=== PATIENT | male | born 1995 | race Caucasian/White ===

== ENCOUNTER → 2020-04-21 | Outpatient (REF) | payer MEDICAID, OTHER, SELFPAY ==
[2020-04-27 14:08] LABS: HSV TYPE I IgG SPECIFIC <0.91 index (0.00-0.90); HSV TYPE I IgM AB <1:10 titer (<1:10); HSV TYPE II IgM ABY <1:10 titer (<1:10)
== END ==
LOC: M LAB REF 17:30
PROVIDERS: ATTEND Physician Assistant
DX: Z11.3 Encounter for screening for infections with a predominantly sexual mode of transmission (principal)

== ENCOUNTER 2020-06-21 14:41 | Inpatient (IN) | payer MEDICAID, OTHER ==
[2020-06-21 17:07] LABS: HEMATOCRIT 48.1 % (42.0-52.0); HEMOGLOBIN 16.1 g/dl (13.5-17.5); MEAN CORPUSCULAR HEMOGLOBIN 29.8 pg (27.0-33.0); MEAN CORPUSCULAR HGB CONC 33.5 g/dl (32.0-36.5); MEAN CORPUSCULAR VOLUME 89.1 fl (80.0-96.0); PLATELET COUNT, AUTOMATED 250 10^3/uL (150-450); WHITE BLOOD COUNT 6.8 10^3/uL (4.0-10.0)
[2020-06-21 18:05] LABS: ACETAMINOPHEN LEVEL < 2.0 UG/ML (10.0-30.0); ALBUMIN 4.2 GM/DL (3.2-5.2); ALT/SGPT 27 U/L (12-78); BILIRUBIN,DIRECT 0.2 MG/DL (0.0-0.2); BILIRUBIN,TOTAL 0.7 MG/DL (0.2-1.0); BLOOD UREA NITROGEN 14 MG/DL (7-18); CALCIUM LEVEL 9.2 MG/DL (8.5-10.1); CARBON DIOXIDE LEVEL 28 MEQ/L (21-32); CHLORIDE LEVEL 108 MEQ/L (98-107); CREATININE FOR GFR 0.91 MG/DL (0.70-1.30); ETHYL ALCOHOL (ETHANOL) 0.004 % (0.000-0.010); GLOMERULAR FILTRATION RATE > 60.0 (>60); GLUCOSE, FASTING 78 MG/DL (70-100); POTASSIUM SERUM 4.3 MEQ/L (3.5-5.1); SALICYLATE LEVEL < 1.7 MG/DL (5.0-30.0); SODIUM LEVEL 140 MEQ/L (136-145); TOTAL PROTEIN 7.2 GM/DL (6.4-8.2)
[2020-06-21 18:27] LABS: AMPHETAMINES LEVEL URINE NEGATIVE (NEGATIVE); BARBITURATES URINE NEGATIVE (NEGATIVE); BENZODIAZEPINES URINE NEGATIVE (NEGATIVE); CANNABINOIDS URINE NEGATIVE (NEGATIVE); COCAINE METABOLITE URINE NEGATIVE (NEGATIVE); METHADONE URINE NEGATIVE (NEGATIVE); OPIATES URINE NEGATIVE (NEGATIVE); PHENCYCLIDINE URINE NEGATIVE (NEGATIVE)
[2020-06-21] MEDS ORDERED: OLANZapine ORAL DISINTEGRATING TAB 5MG PO PRN (20:00)
[2020-06-21] MEDS ORDERED: ACETAMINOPHEN TAB 650MG DOSE (2X325MG) PO PRN (20:00)
[2020-06-21] MEDS ORDERED: MOM 30ML SUSPENSION UDC PO PRN (20:00)
[2020-06-21] MEDS ORDERED: traZODone 50 MG TAB PO PRN (20:00)
[2020-06-21] MEDS ORDERED: MAALOX 30 ML SUSP *UDC PO PRN (20:00)
[2020-06-21 22:02] VITALS: BP 101/61
[2020-06-21] MEDS: ALBUTEROL 90 MCG/ACT 8GM HFA INHALER INH PRN (23:26)
[2020-06-22 06:18] VITALS: BP 103/59
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
[2020-06-22 18:13] VITALS: BP 112/56
[2020-06-23 06:23] VITALS: BP 104/51
[2020-06-23] MEDS: ALBUTEROL 90 MCG/ACT 8GM HFA INHALER INH PRN (08:30)
--- NOTE | 2020-06-23 10:07 | MHIPNPDOC ---
[facility] Progress Note Progress Note DATE OF SERVICE: 06/23/20 HISTORY: . VITAL SIGNS: See below. NEW TEST RESULTS: . CURRENT MEDICATIONS: See below. MENTAL STATUS EXAMINATION: Patient is a -year old male, who is . Speech: Is . Language skills are . Thought processes including: . Thought content: . Abstract reasoning, and computation: . Description of associ ations: . Description of abnormal or psychotic thoughts: . Judgment: . Insight: [very limited, good, fair. poor]. Orientation: . Recent and remote memory: . Attention span and concentration: . Language: . Fund of knowledge: . Mood: . Affect: . DIAGNOSES: 1. . 2. . 3. . ASSESSMENT: MANAGEMENT PLAN: . TIME SPENT: minutes. Vital Signs Vital Signs Date Time Temp Pulse Resp B/P (MAP) Pulse Ox O2 Delivery O2 Flow Rate FiO2 06/23/20 06:23 97.4 52 12 104/51 (68) Room Air 06/22/20 06:18 99 Current Medications Current Medications Medications (Trade) Dose Ordered Sig/Ana Route PRN Reason Start Time Stop Time Status Last Admin Dose Admin Acetaminophen (Tylenol Tab) 650 mg Q6HP PRN PO HEADACHE or DISCOMFORT 06/21/20 20:00 Al Hydrox/Mg Hydrox/Simethicone (Mylanta) 30 ml Q4HP PRN PO HEARTBURN/INDIGESTION 06/21/20 20:00 Albuterol Sulfate (Proventil, Ventolin Hfa) 2 puff Q4HP PRN INH SHORTNESS OF BREATH 06/21/20 23:00 06/23/20 08:30 Home Med (Med Rec Complete!) ASDIRECTED XX 06/21/20 20:30 06/21/20 20:31 DC Magnesium Hydroxide (Milk Of Magnesia) 30 ml DAILYPRN PRN PO CONSTIPATION 06/21/20 20:00 Olanzapine (ZyPREXA ZYDIS) 10 mg Q4HP PRN PO AGITATION/ANXIETY 06/21/20 20:00 Trazodone HCl (Desyrel) 50 mg QHSP PRN PO INSOMNIA 06/21/20 20:00 Allergies Coded Allergies: No Known Allergies (Unverified , 06/21/20) MIRIAM ANNA DO Jun 23, 2020 10:07
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
[2020-06-23] MEDS: OFLOXACIN 0.3 % (OCUFLOX) OPTH SOL 5ML OD SCH ×2 (11:30→13:07)
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
[2020-06-23] MEDS: ERYTHROMYCIN OPHTH OINT OD SCH ×2 (13:07→16:24)
== END 2020-06-23 16:50 | disposition home or self-care (01) | DRG 881 ==
LOC: M ED 14:41 → M ED INP 19:56 → M PSY 21:55
PROVIDERS: ADMIT Psychiatry & Neurology Addiction Medicine; ATTEND Psychiatry & Neurology Addiction Medicine
DX: F43.21 Adjustment disorder with depressed mood (principal); F17.200 Nicotine dependence, unspecified, uncomplicated; H10.31 Unspecified acute conjunctivitis, right eye

== ENCOUNTER 2025-02-24 15:28 | Emergency (ER) | payer OTHER, SELFPAY ==
[~2025-02-24] VITALS: Ht 182.9 cm; Wt 72.4 kg
[2025-02-24] MEDS: IPRATROPIUM 0.5 MG/ALBUTEROL 2.5 MG INH SOL UD 3 ML NEB ONE ×2 (16:16→16:59)
[2025-02-24 16:19] LABS: VENOUS BASE EXCESS -0.9 (-2.0-2.0); VENOUS HCO3 23.2 MMOL/L (23.0-27.0); VENOUS O2 SATURATION 96.4 % (60.0-80.0); VENOUS PARTIAL PRESSURE CO2 37.0 mmHg (38.0-50.0); VENOUS PARTIAL PRESSURE O2 82.3 mmHg (30.0-50.0); VENOUS PH 7.415 UNITS (7.330-7.430); VENOUS STANDARD HCO3 23.7 MMOL/L; VENOUS TOTAL CO2 24.3 MMOL/L (24.0-28.0)
[2025-02-24 16:33] LABS: BASO # 0.0 10^3/uL (0.0-0.2); BASO % 0.5 % (0.0-1.0); EOS # 0.4 10^3/uL (0.0-0.5); EOS % 4.3 % (0.0-3.0); LYMPH # 1.1 10^3/uL (1.5-5.0); LYMPH % 13.4 % (24.0-44.0); MONO # 0.7 10^3/uL (0.0-0.8); MONO % 8.0 % (2.0-8.0); NEUTROPHILS # 6.0 10^3/uL (1.5-8.5); NEUTROPHILS % 73.6 % (36.0-66.0); PLATELET COUNT, AUTOMATED 236 10^3/uL (150-450)
[2025-02-24 16:56] LABS: ALT/SGPT 26 U/L (7.0-40); AST/SGOT 28 U/L (<34); CALCIUM LEVEL 9.0 MG/DL (8.5-10.1); CARBON DIOXIDE LEVEL 25 MMOL/L (20-31); CHLORIDE LEVEL 108 MMOL/L (98-107); CREATININE FOR GFR 0.91 MG/DL (0.70-1.30); GLOMERULAR FILTRATION RATE > 90.0 (>60); MAGNESIUM LEVEL 2.2 MG/DL (1.8-2.4); POTASSIUM SERUM 4.0 MMOL/L (3.5-5.1); SODIUM LEVEL 146 MMOL/L (136-145)
[2025-02-24] MEDS ORDERED: SYMB16INH INH (17:53)
[2025-02-24] MEDS ORDERED: PRED20TA PO (17:53)
[2025-02-24] MEDS ORDERED: PSEU30TA87 PO (17:53)
[2025-02-24] MEDS ORDERED: FLON1SPR NARES (17:53)
[2025-02-24] MEDS ORDERED: VENTAER INH (17:53)
[2025-02-24 17:54] VITALS: BP 134/70; TEMP 97.3; O2SAT 100
== END 2025-02-24 17:59 | disposition home or self-care (01) ==
LOC: M ED 15:28
DX: J45.901 Unspecified asthma with (acute) exacerbation (principal); J30.9 Allergic rhinitis, unspecified; F17.200 Nicotine dependence, unspecified, uncomplicated
CPT/HCPCS: 71045; 80053; 82803; 83605; 83735; 85025; 93005; 94640; 96374; 99284; J2919

== ENCOUNTER 2025-05-13 08:46 | Emergency (ER) | payer SELFPAY ==
[~2025-05-13] VITALS: Ht 182.9 cm; Wt 68.8 kg
[~2025-05-13 08:46] MED LIST: FLON1SPR NARES; PRED20TA PO; PSEU30TA87 PO; SYMB16INH INH; VENTAER INH
[2025-05-13] MEDS ORDERED: ALBU2.5V10 INH (09:04)
[2025-05-13] MEDS: IPRATROPIUM 0.5 MG/ALBUTEROL 2.5 MG INH SOL UD 3 ML NEB ONE (10:19)
[2025-05-13 11:16] VITALS: BP 139/75; TEMP 97.5; O2SAT 97
[2025-05-13] MEDS ORDERED: PRED20TA PO (11:43)
[2025-05-13] MEDS ORDERED: VENTAER INH (11:43)
[2025-05-13] MEDS ORDERED: SYMB16INH INH (11:43)
== END 2025-05-13 11:54 | disposition home or self-care (01) ==
LOC: M ED 08:46
DX: J45.901 Unspecified asthma with (acute) exacerbation (principal); B34.8 Other viral infections of unspecified site; F17.200 Nicotine dependence, unspecified, uncomplicated; F17.290 Nicotine dependence, other tobacco product, uncomplicated

== ENCOUNTER 2025-06-24 05:18 | Emergency (ER) | payer SELFPAY ==
[~2025-06-24] VITALS: Ht 182.9 cm; Wt 68.9 kg
[~2025-06-24 05:18] MED LIST changes: +ALBU2.5V10 INH
[2025-06-24 05:20] VITALS: TEMP 97.7
[2025-06-24 05:49] LABS: BASO # 0.1 10^3/uL (0.0-0.2); BASO % 0.8 % (0.0-1.0); EOS # 1.4 10^3/uL (0.0-0.5); EOS % 19.9 % (0.0-3.0); LYMPH # 1.5 10^3/uL (1.5-5.0); LYMPH % 21.0 % (24.0-44.0); MONO # 0.6 10^3/uL (0.0-0.8); MONO % 8.1 % (2.0-8.0); NEUTROPHILS # 3.6 10^3/uL (1.5-8.5); NEUTROPHILS % 49.9 % (36.0-66.0); PLATELET COUNT, AUTOMATED 251 10^3/uL (150-450)
[2025-06-24 06:11] LABS: CK-MB VALUE MASS 2.7 NG/ML (<3.6)
[2025-06-24 06:13] LABS: ALT/SGPT 26 U/L (7.0-40); AST/SGOT 25 U/L (<34); CALCIUM LEVEL 8.7 MG/DL (8.5-10.1); CARBON DIOXIDE LEVEL 27 MMOL/L (20-31); CHLORIDE LEVEL 107 MMOL/L (98-107); CREATININE FOR GFR 0.88 MG/DL (0.70-1.30); GLOMERULAR FILTRATION RATE > 90.0 (>60); POTASSIUM SERUM 3.8 MMOL/L (3.5-5.1); SODIUM LEVEL 144 MMOL/L (136-145)
[2025-06-24 06:18] LABS: CPK CREATINE PHOSPHOKINASE 240 U/L (46-171); MB/CK RELATIVE INDEX 1.12 (< OR =4)
[2025-06-24 07:40] LABS: CK-MB VALUE MASS 2.5 NG/ML (<3.6)
[2025-06-24 07:47] LABS: CPK CREATINE PHOSPHOKINASE 236 U/L (46-171); MB/CK RELATIVE INDEX 1.05 (< OR =4)
[2025-06-24] MEDS: IPRATROPIUM 0.5 MG/ALBUTEROL 2.5 MG INH SOL UD 3 ML NEB ONE (08:39)
[2025-06-24] MEDS: ALBUTEROL SULFATE 2.5 MG/0.5 ML INH CONCENTRATE NEB SOLN INH ONE (08:40)
[2025-06-24] MEDS ORDERED: VENTAER INH (10:44)
[2025-06-24] MEDS ORDERED: SYMB16INH INH (10:44)
[2025-06-24] MEDS ORDERED: HOME MED LIST COMPLETE! XX SCH (11:30)
[2025-06-24 11:48] VITALS: O2SAT 92
[2025-06-24] MEDS ORDERED: ISOVUE-370 76% 100 ML VIAL As Ordered ONE (12:12)
[2025-06-24] MEDS: DOXYCYCLINE HYCLATE 100 MG TABLET PO ONE (14:03)
[2025-06-24] MEDS ORDERED: DOXY-441 PO (14:29)
[2025-06-24] MEDS ORDERED: ALBU8.5H INH (14:29)
[2025-06-24] MEDS ORDERED: PRED20TA PO (14:29)
[2025-06-24 14:30] VITALS: O2SAT 94
[2025-06-24 14:33] VITALS: BP 137/77
== END 2025-06-24 14:38 | disposition home or self-care (01) ==
LOC: M ED 05:18
DX: J45.901 Unspecified asthma with (acute) exacerbation (principal); R91.8 Other nonspecific abnormal finding of lung field; Z79.899 Other long term (current) drug therapy; Z91.013 Allergy to seafood
CPT/HCPCS: 71045; 71275; 80048; 80076; 82550; 82553; 84484; 85025; 87486; 87581; 87633; 87798; 93005; 93041; 94640; 94760; 96374; 99285; J2919; Q9967